=== PATIENT | female | born 1935 | race Caucasian/White ===

== ENCOUNTER 2023-04-26 11:02 | Emergency (ER) | payer MEDICARE, BC ==
[2023-04-26 11:23] VITALS: BP 158/84; PULSE 75
== END 2023-04-26 12:48 | disposition home or self-care (01) ==
LOC: MERGE 11:02 → LB.ED 11:02
DX: S81.812A Laceration without foreign body, left lower leg, initial encounter (principal); E11.9 Type 2 diabetes mellitus without complications; Z88.2 Allergy status to sulfonamides; Z79.82 Long term (current) use of aspirin; Z79.84 Long term (current) use of oral hypoglycemic drugs; Z79.01 Long term (current) use of anticoagulants; W26.8XXA Contact with other sharp object(s), not elsewhere classified, initial encounter
CPT/HCPCS: 99282